=== PATIENT | male | born 1960 | race Caucasian/White ===

== ENCOUNTER 2021-05-24 21:52 | Inpatient (IN) | payer BC ==
[2021-05-25] MEDS ORDERED: Senokot S 8.6-50 MG TAB PO PRN (00:30)
[2021-05-25] MEDS ORDERED: Dextrose 50% Abboject 50 ML SYRINGE SLOW IVP PRN ×3 (00:30→08:57)
[2021-05-25] MEDS ORDERED: Bisacodyl 5 MG TAB PO PRN (00:30)
[2021-05-25] MEDS ORDERED: Ondansetron ODT 4 MG TAB PO PRN (00:30)
[2021-05-25] MEDS ORDERED: Dextrose 5% in Water 1,000 ML IV PRN ×3 (00:30→08:57)
[2021-05-25] MEDS ORDERED: Enoxaparin Sodium 40 MG/0.4 ML SYRINGE SC SCH (00:30)
[2021-05-25] MEDS ORDERED: HYDROcodone/Acetaminophen 5/325 mg Tablet PO PRN (00:30)
[2021-05-25] MEDS ORDERED: Ondansetron PF 4 MG/2 ML Vial IVP PRN (00:30)
[2021-05-25] MEDS ORDERED: HYDROcodone/Acetaminophen 7.5/325 mg Tablet PO PRN (00:30)
[2021-05-25] MEDS ORDERED: HumaLOG 300 UNITS/3 ML VIAL SC PRN ×3 (00:30→01:03)
[2021-05-25] MEDS ORDERED: Guaifenesin DM 100-10/5 ML UDCUP PO PRN (00:30)
[2021-05-25 00:35] VITALS: BMI 27.3
[2021-05-25] MEDS ORDERED: Melatonin 3 MG TAB PO PRN (00:43)
[2021-05-25] MEDS ORDERED: Electrolyte Replacement Protocol 1 EACH IVPB ONE (03:30)
[2021-05-25] MEDS ORDERED: NS 0.9% w/ 20 MEQ KCL 1,000 ML IV PRN ×2 (03:30)
[2021-05-25] MEDS ORDERED: D5 1/2 NS w/20 mEq KCL 1,000 ML IV PRN (03:30)
[2021-05-25] MEDS ORDERED: HUMULIN R 100 UNITS in Sodium Chloride 0.9% 100 ML IVPB SCH (03:30)
[2021-05-25] MEDS ORDERED: Sodium Chloride 0.9% 1,000 ML IV PRN ×3 (03:30)
[2021-05-25] MEDS ORDERED: Dextrose 5 %-0.45 % NaCl 1,000 ML IV PRN (03:30)
[2021-05-25] MEDS ORDERED: Electrolyte Replacement Protocol FS PRN (03:45)
[2021-05-25 05:15] LABS: #Eosinphils 0.1 thou/uL (0.0-0.7); #Lymphocytes 0.7 thou/uL (1.20-3.40); #Monocytes 0.4 thou/uL (0.11-0.59); #Neutrophils 6.6 thou/uL (1.40-6.50); %Basophils 0.3 % (0.0-1.0); %Eosinophils 0.7 % (0.0-10.0); %Lymphocytes 9.4 % (21.0-51.0); %Monocytes 4.6 % (0.0-10.0); Hemoglobin 13.7 g/dL (14.0-18.0); Mean Corpuscular HGB CONC 33.8 g/dL (32.0-36.0); Mean Corpuscular Hemoglobin 30.6 pg (27.0-31.0); Mean Corpuscular Volume 90.5 fL (78.0-98.0); Mean Platelet Volume 7.1 fL (7.4-10.4); Platelet Count 434 thou/uL (130-400); RBC Distribution Width 11.2 % (11.5-14.5); Red Blood Cell (RBC) Count 4.49 mill/uL (4.70-6.10); White Blood Cell (WBC) Count 7.8 thou/uL (4.8-10.8)
[2021-05-25 05:36] LABS: ALT (SGPT) 28 U/L (8-55); AST (SGOT) 24 U/L (5-34); Albumin 3.1 g/dL (3.5-5.0); Alkaline Phosphatase 69 U/L (40-110); Anion Gap 15 mmol/L (10-20); BUN (Urea Nitrogen) 19 mg/dL (8.4-25.7); Bilirubin, Total 0.5 mg/dL (0.2-1.2); Calc. Creatinine Clearance 96 mL/min (70-130); Calcium 8.5 mg/dL (7.8-10.44); Carbon Dioxide 22 mmol/L (22-29); Chloride 102 mmol/L (98-107); Globulin 2.8 g/dL (2.4-3.5); Glucose 277 mg/dL (70-105); Potassium 3.8 mmol/L (3.5-5.1); Protein, Total 5.9 g/dL (6.0-8.3); Sodium 135 mmol/L (136-145)
[2021-05-25] MEDS: Sodium Chloride 0.9% 1,000 ML IV PRN ×2 (06:04→07:46)
[2021-05-25] MEDS: Zinc Sulfate 220 MG CAP PO SCH (08:27)
[2021-05-25] MEDS: Cholecalciferol (Vitamin D3) 400 UNITS TAB PO SCH (08:27)
[2021-05-25] MEDS: Dexamethasone 4 mg/ml Vial SLOW IVP SCH (08:27)
[2021-05-25] MEDS: Ascorbic Acid 500 mg Chewable Tablet PO SCH (08:27)
[2021-05-25 08:38] LABS: Anion Gap 9 mmol/L (10-20); BUN (Urea Nitrogen) 16 mg/dL (8.4-25.7); Calc. Creatinine Clearance 112 mL/min (70-130); Carbon Dioxide 25 mmol/L (22-29); Chloride 108 mmol/L (98-107); Glucose 155 mg/dL (70-105); Sodium 139 mmol/L (136-145)
[2021-05-25] MEDS ORDERED: Lantus 1000 UNITS/10 ML VIAL SC SCH (09:00)
[2021-05-25] MEDS ORDERED: Potassium Chloride 20 MEQ TAB PO SCH (09:15)
[2021-05-25] MEDS: Acetaminophen 325 MG TAB PO PRN (09:24)
[2021-05-25] MEDS ORDERED: Ibuprofen 600 MG TAB PO PRN (09:59)
[2021-05-25 11:47] LABS: Glucose 165 mg/dL (70-105)
[2021-05-25 11:52] LABS: Anion Gap 12 mmol/L (10-20); BUN (Urea Nitrogen) 15 mg/dL (8.4-25.7); Calc. Creatinine Clearance 132 mL/min (70-130); Calcium 7.9 mg/dL (7.8-10.44); Carbon Dioxide 21 mmol/L (22-29); Chloride 109 mmol/L (98-107); Glucose 166 mg/dL (70-105); Potassium 3.6 mmol/L (3.5-5.1); Sodium 138 mmol/L (136-145)
[2021-05-25] MEDS: HumaLOG 300 UNITS/3 ML VIAL SC PRN (16:57)
[2021-05-25 17:45] LABS: Glucose 269 mg/dL (70-105)
[2021-05-25] MEDS: Enoxaparin Sodium 40 MG/0.4 ML SYRINGE SC SCH (20:45)
[2021-05-25] MEDS: Lantus 1000 UNITS/10 ML VIAL SC SCH (20:47)
[2021-05-25 21:10] LABS: Glucose 349 mg/dL (70-105)
[2021-05-26] MEDS: HumaLOG 300 UNITS/3 ML VIAL SC PRN ×4 (05:53→20:29)
[2021-05-26 07:26] LABS: Anion Gap 15 mmol/L (10-20); BUN (Urea Nitrogen) 15 mg/dL (8.4-25.7); Calc. Creatinine Clearance 104 mL/min (70-130); Calcium 8.5 mg/dL (7.8-10.44); Carbon Dioxide 22 mmol/L (22-29); Chloride 105 mmol/L (98-107); Glucose 243 mg/dL (70-105); Potassium 3.9 mmol/L (3.5-5.1); Sodium 138 mmol/L (136-145)
[2021-05-26] MEDS: Cholecalciferol (Vitamin D3) 400 UNITS TAB PO SCH (09:05)
[2021-05-26] MEDS: Lantus 1000 UNITS/10 ML VIAL SC SCH ×2 (09:06→20:28)
[2021-05-26] MEDS: Zinc Sulfate 220 MG CAP PO SCH (09:06)
[2021-05-26] MEDS: Dexamethasone 4 mg/ml Vial SLOW IVP SCH (09:06)
[2021-05-26] MEDS: Ascorbic Acid 500 mg Chewable Tablet PO SCH (09:06)
[2021-05-26] MEDS: Acetaminophen 325 MG TAB PO PRN (10:21)
[2021-05-26] MEDS ORDERED: Lantus 1000 UNITS/10 ML VIAL SC SCH ×2 (10:22→11:30)
[2021-05-26] MEDS: Enoxaparin Sodium 40 MG/0.4 ML SYRINGE SC SCH (20:27)
[2021-05-27] MEDS: Acetaminophen 325 MG TAB PO PRN (03:16)
[2021-05-27 07:00] LABS: Anion Gap 12 mmol/L (10-20); BUN (Urea Nitrogen) 17 mg/dL (8.4-25.7); Calc. Creatinine Clearance 119 mL/min (70-130); Calcium 8.7 mg/dL (7.8-10.44); Carbon Dioxide 25 mmol/L (23-31); Chloride 104 mmol/L (98-107); Glucose 167 mg/dL (80-115); Potassium 3.5 mmol/L (3.5-5.1); Sodium 137 mmol/L (136-145)
[2021-05-27] MEDS ORDERED: Dexamethasone 4 MG TAB PO SCH (08:00)
[2021-05-27] MEDS: Potassium Chloride 20 MEQ TAB PO SCH ×2 (08:18→08:31)
[2021-05-27] MEDS: Ascorbic Acid 500 mg Chewable Tablet PO SCH (08:18)
[2021-05-27] MEDS: Cholecalciferol (Vitamin D3) 400 UNITS TAB PO SCH (08:18)
[2021-05-27] MEDS: Zinc Sulfate 220 MG CAP PO SCH (08:18)
[2021-05-27] MEDS: Lantus 1000 UNITS/10 ML VIAL SC SCH (08:19)
[2021-05-27 08:55] LABS: Glucose 158 mg/dL (80-115)
[2021-05-27] MEDS: HumaLOG 300 UNITS/3 ML VIAL SC PRN ×2 (13:19→16:20)
[2021-05-27 18:46] VITALS: BP 135/83; TEMP 97.9
== END 2021-05-27 17:58 | disposition home or self-care (01) | DRG 177 ==
LOC: T4-B 21:52 → CCU 05-25 04:31 → T4-A 05-25 13:54 → OBSVTOIN 05-26 13:43
PROVIDERS: ADMIT Internal Medicine; ATTEND Internal Medicine
PROC: 8E0ZXY6 Isolation (ICD-10-PCS; principal; 2021-05-26)
DX: U07.1 COVID-19 (principal); E11.10 Type 2 diabetes mellitus with ketoacidosis without coma; J12.82 Pneumonia due to coronavirus disease 2019; J96.01 Acute respiratory failure with hypoxia; E87.1 Hypo-osmolality and hyponatremia; Z79.4 Long term (current) use of insulin
CPT/HCPCS: 36415; 36416; 80048; 80053; 82010; 83036; 83605; 85025; 85379; 86140; 96372; 96374; 96375; 96376; G0378; J1100; J1650; J1815; J2405; J3490; J7050; J8540

== ENCOUNTER 2021-06-02 16:18 | Inpatient (IN) | payer BC ==
[~2021-06-02 16:18] MED LIST: Iopamidol-370 76% 500 ML 1 ML ONE
[2021-06-02] MEDS ORDERED: Morphine 4 MG/ML VIAL ONE ×2 (17:37→20:17)
[2021-06-02] MEDS ORDERED: Ondansetron PF 4 MG/2 ML Vial ONE (17:37)
[2021-06-02 17:38] LABS: Hemoglobin 8.9 g/dL (14.0-18.0); Mean Corpuscular HGB CONC 34.5 g/dL (32.0-36.0); Mean Corpuscular Hemoglobin 32.4 pg (27.0-31.0); Mean Platelet Volume 7.9 fL (7.4-10.4); Platelet Count 517 thou/uL (130-400); RBC Distribution Width 11.7 % (11.5-14.5); Red Blood Cell (RBC) Count 2.74 mill/uL (4.70-6.10); White Blood Cell (WBC) Count 23.6 thou/uL (4.8-10.8)
[2021-06-02 17:47] LABS: INR-International Normal Ratio 1.1; Prothrombin Time 13.9 sec (12.0-14.7)
[2021-06-02 17:50] LABS: PTT 22.4 sec (22.9-36.1)
[2021-06-02 17:54] LABS: ALT (SGPT) 40 U/L (8-55); AST (SGOT) 22 U/L (5-34); Albumin 2.7 g/dL (3.4-4.8); Alkaline Phosphatase 61 U/L (40-110); Anion Gap 15 mmol/L (10-20); BUN (Urea Nitrogen) 24 mg/dL (8.4-25.7); Bilirubin, Total 0.2 mg/dL (0.2-1.2); Calc. Creatinine Clearance 0 mL/min (70-130); Calcium 7.9 mg/dL (7.8-10.44); Carbon Dioxide 21 mmol/L (23-31); Chloride 102 mmol/L (98-107); Glucose 346 mg/dL (80-115); Lipase 69 U/L (8-78); Protein, Total 4.7 g/dL (5.8-8.1); Sodium 133 mmol/L (136-145)
[2021-06-02 18:01] LABS: Band 3 % (5-11); Lymphocytes 2 % (21-51); MDiff Complete? YES; Monocytes 4 % (0-10); Neutrophil 90 % (42-75); Platelet Morphology Comment Appears Increased; RBC Morphology Normal; Reactive Lymphocytes 1 % (0-10)
[2021-06-02] MEDS ORDERED: Piperacillin/Tazobactam 3.375 GM VIAL ONE (18:36)
[2021-06-02] MEDS ORDERED: Bacitracin 1 PK ONE (20:28)
[2021-06-02] MEDS ORDERED: Norepinephrine 8 MG/0.9% NS 250 ML IVPB SCH (20:45)
[2021-06-02 20:58] LABS: Lactic Acid 7.4 mmol/L (0.5-2.2)
[2021-06-02] MEDS ORDERED: Pantoprazole 40 MG VIAL IVP SCH (21:00)
[2021-06-02] MEDS ORDERED: Ondansetron PF 4 MG/2 ML Vial IVP PRN (21:03)
[2021-06-02] MEDS ORDERED: Acetaminophen 650 MG Suppository PR PRN (21:03)
[2021-06-02] MEDS ORDERED: Ondansetron ODT 4 MG TAB PO PRN (21:03)
[2021-06-02] MEDS ORDERED: Norepinephrine 8 MG/0.9% NS 250 ML ONE (21:08)
[2021-06-02] MEDS ORDERED: Pantoprazole 80 MG in Sodium Chloride 0.9% 100 ML IVPB SCH (21:31)
[2021-06-02] MEDS ORDERED: Pantoprazole 40 MG VIAL ONE (21:34)
[2021-06-02] MEDS ORDERED: Tranexamic Acid 1,000 MG/10 ML VIAL ONE (21:37)
[2021-06-02 21:42] LABS: #Basophils 0.1 thou/uL (0.0-0.2); #Eosinphils 0.1 thou/uL (0.0-0.7); #Neutrophils 20.3 thou/uL (1.40-6.50); %Basophils 0.4 % (0.0-1.0); %Eosinophils 0.4 % (0.0-10.0); %Lymphocytes 8.7 % (21.0-51.0); %Monocytes 4.4 % (0.0-10.0); %Neutrophils 86.2 % (42.0-75.0); Mean Corpuscular HGB CONC 33.8 g/dL (32.0-36.0); Mean Corpuscular Hemoglobin 31.9 pg (27.0-31.0); Mean Corpuscular Volume 94.2 fL (78.0-98.0); Platelet Count 390 thou/uL (130-400); RBC Distribution Width 11.7 % (11.5-14.5); Red Blood Cell (RBC) Count 2.51 mill/uL (4.70-6.10); White Blood Cell (WBC) Count 23.5 thou/uL (4.8-10.8)
[2021-06-02] MEDS ORDERED: Lidocaine 1% PF 5 ML VIAL ONE (21:50)
[2021-06-02] MEDS ORDERED: Fentanyl 100 MCG/2 ML VIAL ONE (21:58)
[2021-06-02] MEDS ORDERED: EPINEPHrine 1 MG/10 ML Abboject SYRINGE ONE (22:46)
[2021-06-02] MEDS ORDERED: Dextrose 5% in Water 1,000 ML IV PRN (22:47)
[2021-06-02] MEDS ORDERED: Dextrose 50% Abboject 50 ML SYRINGE SLOW IVP PRN (22:47)
[2021-06-02] MEDS ORDERED: HumaLOG 300 UNITS/3 ML VIAL SC PRN (22:47)
[2021-06-02] MEDS ORDERED: Ketamine 50 MG/ML (10ML VIAL) ONE (22:56)
[2021-06-02] MEDS ORDERED: Succinylcholine 200 MG/10 ml SYRINGE FS ONE (23:11)
[2021-06-02] MEDS ORDERED: PHENYLEPHRINE-NS 100 MCG/ML 10 ML SYRINGE ONE (23:11)
[2021-06-02] MEDS ORDERED: Rocuronium Bromide 10 MG/ML (10ML VIAL) ONE (23:11)
[2021-06-03 00:35] LABS: Hemoglobin 8.1 g/dL (14.0-18.0)
[2021-06-03] MEDS ORDERED: Midazolam HCl 5 mg/5 ml Vial ONE (00:36)
[2021-06-03] MEDS ORDERED: Pantoprazole 80 MG in Sodium Chloride 0.9% 100 ML IVPB SCH (01:00)
[2021-06-03] MEDS ORDERED: Propofol 1,000 MG/100 ML VIAL IV ONE (01:55)
[2021-06-03] MEDS: Sodium Chloride 0.9% 1,000 ML IV SCH ×2 (01:58→13:39)
[2021-06-03 02:27] LABS: Actual Bicarbonate (HCO3a) 18.1 mEq/L (22-28); Base Excess (BEa) -6.1 mEq/L (-2.0 to +3.0); CO2 Tension 31.3 mmHg (35.0-45.0); Calcium, Ionized (arterial) 0.98 mmol/L (1.12-1.30); Carboxyhemoglobin (COHb) 0.3 gm% (0.0-3.0); Hemoglobin (Hb) 10.2 g/dL (14.0-18.0); O2 Tension (PaO2), arterial 144.9 mmHg (> 80.0); Potassium - ABG Lab 5.46 mmol/L (3.70-5.30); pH, Arterial 7.38 (7.35-7.45)
[2021-06-03 02:30] LABS: Puncture Site RR
[2021-06-03 02:31] LABS: ALV-art Gradient 172.475 mmHg (0-20)
[2021-06-03 02:55] VITALS: BMI 30.8
[2021-06-03] MEDS ORDERED: Lorazepam 2 MG/ML VIAL SLOW IVP PRN (03:00)
[2021-06-03] MEDS ORDERED: Fentanyl BOLUS 250 ML IVPB PRN (03:00)
[2021-06-03] MEDS ORDERED: Propofol BOLUS 1,000 MG/100 ML VIAL IV PRN (03:00)
[2021-06-03] MEDS ORDERED: Morphine 2 MG/ML VIAL SLOW IVP PRN (03:00)
[2021-06-03] MEDS ORDERED: Fentanyl CADD 100 ML IV SCH (03:00)
[2021-06-03] MEDS ORDERED: DISCONTINUE PREVIOUS NARCOTIC PAIN MEDICATIONS AND BENZODIAZEPINES FS SCH (03:00)
[2021-06-03] MEDS: HumaLOG 300 UNITS/3 ML VIAL SC PRN ×2 (04:11→09:08)
[2021-06-03 04:28] LABS: INR-International Normal Ratio 1.2; Prothrombin Time 15.3 sec (12.0-14.7)
[2021-06-03 04:40] LABS: Hemoglobin 10.1 g/dL (14.0-18.0); Mean Corpuscular Volume 91.4 fL (78.0-98.0); Mean Platelet Volume 7.6 fL (7.4-10.4); Platelet Count 262 thou/uL (130-400); RBC Distribution Width 12.9 % (11.5-14.5); Red Blood Cell (RBC) Count 3.14 mill/uL (4.70-6.10); White Blood Cell (WBC) Count 43.3 thou/uL (4.8-10.8)
[2021-06-03] MEDS: Propofol 1,000 MG/100 ML VIAL IV PRN ×2 (04:52→09:07)
[2021-06-03 04:55] LABS: Band 12 % (5-11); Lymphocytes 12 % (21-51); MDiff Complete? YES; Neutrophil 71 % (42-75); Platelet Morphology Comment Appears Adequate; RBC Morphology Normal; Reactive Lymphocytes 5 % (0-10)
[2021-06-03 05:03] LABS: ALT (SGPT) 24 U/L (8-55); AST (SGOT) 17 U/L (5-34); Albumin 2.6 g/dL (3.4-4.8); Alkaline Phosphatase 43 U/L (40-110); Anion Gap 16 mmol/L (10-20); BUN (Urea Nitrogen) 26 mg/dL (8.4-25.7); Bilirubin, Total 0.7 mg/dL (0.2-1.2); Calc. Creatinine Clearance 112 mL/min (70-130); Calcium 7.1 mg/dL (7.8-10.44); Carbon Dioxide 20 mmol/L (23-31); Chloride 106 mmol/L (98-107); Globulin 1.5 g/dL (2.4-3.5); Glucose 310 mg/dL (80-115); Protein, Total 4.1 g/dL (5.8-8.1); Sodium 136 mmol/L (136-145)
[2021-06-03] MEDS ORDERED: Vancomycin 1.5 GRAM/300 ML BAG 1.5 GM in Premix Bag 1 BAG IVPB SCH (06:00)
[2021-06-03] MEDS ORDERED: Vancomycin HCl 1.5 GM in Sodium Chloride 0.9% 250 ML 300 ML IVPB SCH ×2 (06:00→09:00)
[2021-06-03] MEDS: Piperacillin/Tazobactam 3.375 GM in Sodium Chloride 0.9% 100 ML IVPB SCH ×3 (06:19→21:00)
[2021-06-03 08:22] LABS: Hemoglobin 9.3 g/dL (14.0-18.0)
[2021-06-03] MEDS ORDERED: Pantoprazole 40 MG VIAL IVP SCH (09:00)
[2021-06-03 11:51] LABS: Hemoglobin 8.2 g/dL (14.0-18.0)
[2021-06-03] MEDS ORDERED: Dextrose 50% Abboject 50 ML SYRINGE SLOW IVP SCH (12:30)
[2021-06-03] MEDS ORDERED: Insulin Regular 300 UNITS/3 ML VIAL IVP SCH (12:30)
[2021-06-03] MEDS: Pantoprazole 80 MG, Admixture Fee 1 EACH in Sodium Chloride 0.9% 100 ML IVPB SCH ×2 (13:00→20:59)
[2021-06-03 16:48] LABS: Hemoglobin 7.9 g/dL (14.0-18.0)
[2021-06-03 19:49] LABS: Hemoglobin 7.7 g/dL (14.0-18.0)
[2021-06-04 00:19] LABS: Hemoglobin 7.1 g/dL (14.0-18.0)
[2021-06-04 04:26] LABS: #Lymphocytes 1.8 thou/uL (1.20-3.40); #Monocytes 0.9 thou/uL (0.11-0.59); #Neutrophils 12.2 thou/uL (1.40-6.50); %Basophils 0.1 % (0.0-1.0); %Eosinophils 0.2 % (0.0-10.0); %Lymphocytes 11.8 % (21.0-51.0); %Monocytes 6.1 % (0.0-10.0); %Neutrophils 81.8 % (42.0-75.0); Hemoglobin 7.1 g/dL (14.0-18.0); Mean Corpuscular HGB CONC 35.9 g/dL (32.0-36.0); Mean Corpuscular Hemoglobin 31.9 pg (27.0-31.0); Mean Platelet Volume 7.5 fL (7.4-10.4); Platelet Count 161 thou/uL (130-400); RBC Distribution Width 13.3 % (11.5-14.5); Red Blood Cell (RBC) Count 2.23 mill/uL (4.70-6.10); White Blood Cell (WBC) Count 14.9 thou/uL (4.8-10.8)
[2021-06-04 04:40] LABS: Anion Gap 8 mmol/L (10-20); BUN (Urea Nitrogen) 11 mg/dL (8.4-25.7); Calc. Creatinine Clearance 138 mL/min (70-130); Calcium 7.4 mg/dL (7.8-10.44); Carbon Dioxide 28 mmol/L (23-31); Chloride 108 mmol/L (98-107); Glucose 144 mg/dL (80-115); Potassium 3.6 mmol/L (3.5-5.1); Sodium 140 mmol/L (136-145)
[2021-06-04] MEDS: Sodium Chloride 0.9% 1,000 ML IV SCH ×2 (04:53→23:12)
[2021-06-04] MEDS: Pantoprazole 80 MG, Admixture Fee 1 EACH in Sodium Chloride 0.9% 100 ML IVPB SCH ×2 (05:53→17:01)
[2021-06-04] MEDS: Piperacillin/Tazobactam 3.375 GM in Sodium Chloride 0.9% 100 ML IVPB SCH ×3 (05:54→21:11)
[2021-06-04 12:30] LABS: Glucose 180 mg/dL (80-115)
[2021-06-04] MEDS: Famotidine 20 MG TAB PO SCH (21:11)
[2021-06-04] MEDS: Acetaminophen 325 MG TAB PO PRN (21:17)
[2021-06-05 04:49] LABS: #Eosinphils 0.1 thou/uL (0.0-0.7); #Lymphocytes 1.7 thou/uL (1.20-3.40); #Monocytes 0.6 thou/uL (0.11-0.59); #Neutrophils 6.8 thou/uL (1.40-6.50); %Basophils 0.5 % (0.0-1.0); %Eosinophils 0.8 % (0.0-10.0); %Lymphocytes 17.9 % (21.0-51.0); %Monocytes 6.9 % (0.0-10.0); %Neutrophils 73.9 % (42.0-75.0); Mean Corpuscular HGB CONC 35.2 g/dL (32.0-36.0); Mean Corpuscular Hemoglobin 31.8 pg (27.0-31.0); Mean Corpuscular Volume 90.5 fL (78.0-98.0); Mean Platelet Volume 7.2 fL (7.4-10.4); Platelet Count 174 thou/uL (130-400); RBC Distribution Width 13.2 % (11.5-14.5); White Blood Cell (WBC) Count 9.2 thou/uL (4.8-10.8)
[2021-06-05 05:07] LABS: Anion Gap 8 mmol/L (10-20); BUN (Urea Nitrogen) 8 mg/dL (8.4-25.7); Calc. Creatinine Clearance 131 mL/min (70-130); Calcium 7.6 mg/dL (7.8-10.44); Carbon Dioxide 28 mmol/L (23-31); Chloride 108 mmol/L (98-107); Glucose 141 mg/dL (80-115); Potassium 3.4 mmol/L (3.5-5.1); Sodium 141 mmol/L (136-145)
[2021-06-05] MEDS: Piperacillin/Tazobactam 3.375 GM in Sodium Chloride 0.9% 100 ML IVPB SCH ×3 (06:00→21:26)
[2021-06-05] MEDS: Acetaminophen 325 MG TAB PO PRN (06:07)
[2021-06-05] MEDS: Famotidine 20 MG TAB PO SCH (09:20)
[2021-06-05] MEDS ORDERED: Potassium Chloride 20 MEQ TAB PO SCH (09:45)
[2021-06-05] MEDS: Sodium Chloride 0.9% 1,000 ML IV SCH (11:04)
[2021-06-05 14:50] LABS: Hemoglobin 7.2 g/dL (14.0-18.0); Platelet Count 189 thou/uL (130-400)
[2021-06-05] MEDS: Pantoprazole 80 MG, Admixture Fee 1 EACH in Sodium Chloride 0.9% 100 ML IVPB SCH (16:22)
[2021-06-05] MEDS: HumaLOG 300 UNITS/3 ML VIAL SC PRN (18:38)
[2021-06-05] MEDS ORDERED: Temazepam 15 MG CAP PO PRN (18:56)
[2021-06-05] MEDS ORDERED: Melatonin 3 MG TAB PO PRN (18:56)
[2021-06-06] MEDS: Pantoprazole 80 MG, Admixture Fee 1 EACH in Sodium Chloride 0.9% 100 ML IVPB SCH ×2 (02:23→11:00)
[2021-06-06 05:02] LABS: Hemoglobin 7.6 g/dL (14.0-18.0); Platelet Count 213 thou/uL (130-400)
[2021-06-06 05:22] LABS: Anion Gap 10 mmol/L (10-20); BUN (Urea Nitrogen) 5 mg/dL (8.4-25.7); Calc. Creatinine Clearance 117 mL/min (70-130); Calcium 7.7 mg/dL (7.8-10.44); Carbon Dioxide 28 mmol/L (23-31); Chloride 108 mmol/L (98-107); Glucose 146 mg/dL (80-115); Potassium 3.6 mmol/L (3.5-5.1); Sodium 142 mmol/L (136-145)
[2021-06-06] MEDS: Piperacillin/Tazobactam 3.375 GM in Sodium Chloride 0.9% 100 ML IVPB SCH (05:58)
[2021-06-07] MEDS: Piperacillin/Tazobactam 3.375 GM in Sodium Chloride 0.9% 100 ML IVPB SCH (10:22)
[2021-06-07 12:02] VITALS: BP 134/83; TEMP 98.2
[2021-06-07] MEDS: HumaLOG 300 UNITS/3 ML VIAL SC PRN (12:47)
[2021-06-07 14:49] LABS: #Basophils 0.1 thou/uL (0.0-0.2); #Eosinphils 0.2 thou/uL (0.0-0.7); #Lymphocytes 1.7 thou/uL (1.20-3.40); #Monocytes 0.4 thou/uL (0.11-0.59); %Basophils 0.7 % (0.0-1.0); %Eosinophils 1.9 % (0.0-10.0); %Lymphocytes 20.5 % (21.0-51.0); %Neutrophils 71.9 % (42.0-75.0); Hemoglobin 8.4 g/dL (14.0-18.0); Mean Corpuscular HGB CONC 34.5 g/dL (32.0-36.0); Mean Corpuscular Hemoglobin 31.6 pg (27.0-31.0); Mean Corpuscular Volume 91.6 fL (78.0-98.0); Platelet Count 302 thou/uL (130-400); RBC Distribution Width 14.2 % (11.5-14.5); Red Blood Cell (RBC) Count 2.65 mill/uL (4.70-6.10); White Blood Cell (WBC) Count 8.4 thou/uL (4.8-10.8)
== END 2021-06-07 17:40 | disposition home or self-care (01) | DRG 377 ==
LOC: ERS 16:18 → ERHOLD 19:58 → IMCU/EMU 06-03 00:59 → CCU 06-03 01:31 → 2SE 06-04 10:44
PROVIDERS: ADMIT Student in an Organized Health Care Education/Training Program; ATTEND Internal Medicine
PROC: 05HY33Z Insertion of Infusion Device into Upper Vein, Percutaneous Approach (ICD-10-PCS; principal; 2021-06-02)
PROC: 30233L1 Transfusion of Nonautologous Fresh Plasma into Peripheral Vein, Percutaneous Approach (ICD-10-PCS; 2021-06-02)
PROC: 30233N1 Transfusion of Nonautologous Red Blood Cells into Peripheral Vein, Percutaneous Approach (ICD-10-PCS; 2021-06-02)
PROC: 30233R1 Transfusion of Nonautologous Platelets into Peripheral Vein, Percutaneous Approach (ICD-10-PCS; 2021-06-02)
PROC: 30233K1 Transfusion of Nonautologous Frozen Plasma into Peripheral Vein, Percutaneous Approach (ICD-10-PCS; 2021-06-02)
PROC: 0DJ08ZZ Inspection of Upper Intestinal Tract, Via Natural or Artificial Opening Endoscopic (ICD-10-PCS; 2021-06-03)
PROC: 0W3P8ZZ Control Bleeding in Gastrointestinal Tract, Via Natural or Artificial Opening Endoscopic (ICD-10-PCS; 2021-06-03)
PROC: 3E0H8GC Introduction of Other Therapeutic Substance into Lower GI, Via Natural or Artificial Opening Endoscopic (ICD-10-PCS; 2021-06-03)
PROC: 5A1935Z Respiratory Ventilation, Less than 24 Consecutive Hours (ICD-10-PCS; 2021-06-03)
PROC: 0BH18EZ Insertion of Endotracheal Airway into Trachea, Via Natural or Artificial Opening Endoscopic (ICD-10-PCS; 2021-06-03)
DX: K26.4 Chronic or unspecified duodenal ulcer with hemorrhage (principal); R57.8 Other shock; J96.01 Acute respiratory failure with hypoxia; D62 Acute posthemorrhagic anemia; K21.9 Gastro-esophageal reflux disease without esophagitis; T39.395A Adverse effect of other nonsteroidal anti-inflammatory drugs [NSAID], initial encounter; T38.0X5A Adverse effect of glucocorticoids and synthetic analogues, initial encounter; E87.5 Hyperkalemia; E11.69 Type 2 diabetes mellitus with other specified complication; Z79.4 Long term (current) use of insulin; Z79.899 Other long term (current) drug therapy
CPT/HCPCS: 36415; 36416; 36430; 71045; 74177; 80048; 80053; 82805; 83605; 83690; 84484; 85014; 85018; 85025; 85049; 85610; 85730; 86850; 86900; 86901; 87040; 87045; 87046; 87086; 87324; 87427; 87449; 93005; 94002; C9113; J0171; J1815; J2060; J2250; J2270; J2405; J2543; J2704; J3010; J3370; J3490; J7050; P9016; P9035; P9048; Q9967

== ENCOUNTER 2022-05-21 22:06 | Observation (INO) | payer BC ==
[2022-05-22 00:10] VITALS: BMI 32.3
[2022-05-22 01:29] LABS: SARS-CoV-2 NAA Rapid Test Not Detected (NotDetected)
[2022-05-22] MEDS ORDERED: Nitroglycerin 0.4 MG TAB (25 Tab Bottle) SL PRN (01:29)
[2022-05-22 01:49] LABS: Troponin I Less than 0.010 ng/mL (< 0.028)
[2022-05-22] MEDS: Sodium Chloride 0.9% 500 ML IV SCH ×2 (02:52→12:50)
[2022-05-22] MEDS ORDERED: Dextrose 5% in Water 1,000 ML IV PRN (03:13)
[2022-05-22] MEDS ORDERED: Dextrose 50% Abboject 50 ML SYRINGE SLOW IVP PRN (03:13)
[2022-05-22] MEDS ORDERED: Insulin Regular 300 UNITS/3 ML VIAL SC PRN (03:13)
[2022-05-22 05:14] LABS: Cardiac Risk 5.7 (Less than 4.5)
[2022-05-22 05:22] LABS: Troponin I Less than 0.010 ng/mL (< 0.028)
[2022-05-22 05:26] LABS: Hemoglobin A1c 7.7 % (4.0-6.0)
[2022-05-22] MEDS ORDERED: Acetaminophen 500 MG TAB PO SCH (08:00)
[2022-05-22] MEDS: Insulin Regular 300 UNITS/3 ML VIAL SC SCH ×2 (08:29→12:50)
[2022-05-22] MEDS ORDERED: Regadenoson 0.4 MG/5 ML SYRINGE ONE (08:52)
[2022-05-22] MEDS ORDERED: Aspirin Chewable 81 MG TAB PO SCH (09:00)
[2022-05-22] MEDS ORDERED: diphenhydrAMINE 25 MG CAP PO SCH (09:00)
[2022-05-22] MEDS ORDERED: Aspirin 300 MG Suppository PR SCH (09:00)
[2022-05-22] MEDS ORDERED: Enoxaparin Sodium 40 MG/0.4 ML SYRINGE SC SCH (09:00)
[2022-05-22] MEDS ORDERED: Insulin Glargine 30 UNITS/0.3 ML VIAL SC SCH (09:00)
[2022-05-22] MEDS: Carvedilol 3.125 MG TAB PO SCH ×2 (12:50→16:48)
[2022-05-22 16:01] VITALS: BP 175/92; TEMP 98
[2022-05-22] MEDS ORDERED: traMADol HCl 50 MG TAB PO SCH (21:00)
[2022-05-22] MEDS ORDERED: Amlodipine 5 mg/Benazepril 20 mg CAP PO SCH (21:00)
[2022-05-22] MEDS ORDERED: diphenhydrAMINE 50 MG CAP PO SCH (21:00)
== END 2022-05-22 16:49 | disposition home or self-care (01) ==
LOC: 2SW 22:06
PROVIDERS: ADMIT Family Medicine; ATTEND Family Medicine
DX: R07.2 Precordial pain (principal); R06.02 Shortness of breath; I10 Essential (primary) hypertension; E11.9 Type 2 diabetes mellitus without complications; E78.5 Hyperlipidemia, unspecified; M19.90 Unspecified osteoarthritis, unspecified site; N52.9 Male erectile dysfunction, unspecified; Z86.16 Personal history of COVID-19; Z79.4 Long term (current) use of insulin; Z79.899 Other long term (current) drug therapy; Z88.8 Allergy status to other drugs, medicaments and biological substances; Z20.822 Contact with and (suspected) exposure to COVID-19
CPT/HCPCS: 36415; 36416; 78452; 80061; 83036; 84484; 93017; 94760; 96361; 96372; 96374; A9500; G0378; J1650; J2785; J7050; J7070; U0002

== ENCOUNTER 2022-06-17 17:30 | Outpatient (CLI) | payer BC | END 2022-06-17 17:31 | disposition home or self-care (01) | LOC: SLEEPLAB 17:30 | PROVIDERS: ATTEND Internal Medicine Pulmonary Disease | DX: G47.33 Obstructive sleep apnea (adult) (pediatric) (principal); R53.83 Other fatigue; E66.9 Obesity, unspecified; R06.83 Snoring; I10 Essential (primary) hypertension; E11.9 Type 2 diabetes mellitus without complications; G47.00 Insomnia, unspecified; Z68.31 Body mass index [BMI] 31.0-31.9, adult | CPT/HCPCS: 95800 ==